=== PATIENT | female | born 1960 | race Caucasian/White ===

== ENCOUNTER 2022-12-13 10:12 | Outpatient (CLI) | payer BC | END 2022-12-13 10:13 | disposition home or self-care (01) | LOC: NAV RAD 10:12 | PROVIDERS: ATTEND Family Medicine | DX: R07.81 Pleurodynia (principal); R07.89 Other chest pain | CPT/HCPCS: 71045 ==

== ENCOUNTER 2023-08-19 14:18 | Outpatient (CLI) | payer BC | END 2023-08-19 14:19 | disposition home or self-care (01) | LOC: NAV RAD 14:18 | PROVIDERS: ATTEND Family Medicine | DX: M25.551 Pain in right hip (principal); M25.561 Pain in right knee; M17.11 Unilateral primary osteoarthritis, right knee; M16.11 Unilateral primary osteoarthritis, right hip ==

== ENCOUNTER 2024-03-02 11:37 | Outpatient (CLI) | payer BC | END 2024-03-02 11:38 | disposition home or self-care (01) | LOC: NAV RAD 11:37 | PROVIDERS: ATTEND Family Medicine | DX: S99.922A Unspecified injury of left foot, initial encounter (principal) ==